=== PATIENT | female | born 1970 | race Caucasian/White ===

== ENCOUNTER → 2018-06-03 | Outpatient (CLI) | payer BC ==
[~2018-06-03] MED LIST: DOCUSATE SODIU100 MG PO; ENDOCET 5-3251 EACH PO; IBUPROFEN600 MG PO; IRON18 MG PO; MEGACE20 MG PO; MOTRIN800 MG PO; SYNTHROID112 MCG PO
== END | disposition home or self-care (01) ==
LOC: NUC 08:41
DX: R10.11 Right upper quadrant pain (principal); R14.0 Abdominal distension (gaseous)
CPT/HCPCS: 78226; A9537